=== PATIENT | female | born 1990 | race Caucasian/White ===

== ENCOUNTER → 2016-10-30 | Outpatient (REF) | payer OTHER ==
[~2016-10-30] MED LIST: ACET50TA PO; ANUS2.5C2 PR; DOCU10ELUD PO; IBUP80TA PO; MOM30SS PO; PRENTAB74 PO
== END ==
LOC: M LAB REF 16:50
PROVIDERS: ATTEND Family Medicine
DX: Z12.4 Encounter for screening for malignant neoplasm of cervix (principal)

== ENCOUNTER → 2017-07-12 | Outpatient (REF) | payer OTHER | LOC: M SFHCLERA 11:56 | PROVIDERS: ATTEND Nurse Practitioner Family | DX: J02.9 Acute pharyngitis, unspecified (principal) ==

== ENCOUNTER → 2018-02-05 | Outpatient (CLI) | payer BC, OTHER | LOC: M LRY 09:00 | DX: S49.91XA Unspecified injury of right shoulder and upper arm, initial encounter (principal); W23.1XXA Caught, crushed, jammed, or pinched between stationary objects, initial encounter; Y92.9 Unspecified place or not applicable | CPT/HCPCS: 73080 ==

== ENCOUNTER → 2018-04-20 | Outpatient (REF) | payer OTHER | LOC: M SFHCLERA 15:10 | DX: J02.9 Acute pharyngitis, unspecified (principal) ==

== ENCOUNTER → 2019-07-18 | Outpatient (REF) | payer OTHER ==
[~2019-07-18] MED LIST changes: -ACET50TA PO; -DOCU10ELUD PO; +DOCU5LIQ PO; +MAPA500T17 PO
== END ==
LOC: M SFHCPLAZ 10:56
PROVIDERS: ATTEND Specialist
DX: Z12.4 Encounter for screening for malignant neoplasm of cervix (principal)

== ENCOUNTER → 2019-09-05 | Outpatient (CLI) | payer OTHER | LOC: M PLALAB 13:56 | PROVIDERS: ATTEND Physician Assistant | DX: Z34.90 Encounter for supervision of normal pregnancy, unspecified, unspecified trimester (principal); Z3A.01 Less than 8 weeks gestation of pregnancy ==

== ENCOUNTER → 2019-11-02 | Outpatient (REF) | payer OTHER ==
[2019-11-02 13:22] LABS: HEMATOCRIT 37.1 % (36.0-47.0); HEMOGLOBIN 12.4 g/dl (12.0-15.5); MEAN CORPUSCULAR HEMOGLOBIN 29.8 pg (27.0-33.0); MEAN CORPUSCULAR HGB CONC 33.4 g/dl (32.0-36.5); MEAN CORPUSCULAR VOLUME 89.2 fl (80.0-96.0); PLATELET COUNT, AUTOMATED 200 10^3/uL (150-450); RED BLOOD COUNT 4.16 10^6/uL (4.00-5.40); WHITE BLOOD COUNT 7.3 10^3/uL (4.0-10.0)
[2019-11-02 13:41] LABS: GLUCOSE CHALLENGE TEST 1 HOUR 104 MG/DL (LESS THAN 140)
[2019-11-02 15:10] LABS: CHLAMYDIA DNA AMPLIFICATION NEGATIVE (NEGATIVE); GC DNA AMPLIFICATION NEGATIVE (NEGATIVE)
[2019-11-04 14:21] LABS: HEPATITIS B SURFACE ANTIGEN NEGATIVE (NEGATIVE); RUBELLA IgG QUALITATIVE IMMUNE (IMMUNE)
[2019-11-04 14:49] LABS: HEPATITIS C VIRUS ABY INDEX 0.3 INDEX (<0.8)
[2019-11-04 14:50] LABS: HIV 1&2 SCREEN CENTAUR NEGATIVE (NEGATIVE)
== END ==
LOC: M PLALAB 09:31
PROVIDERS: ATTEND Advanced Practice Midwife
DX: Z34.91 Encounter for supervision of normal pregnancy, unspecified, first trimester (principal)

== ENCOUNTER → 2019-11-14 | Outpatient (REF) | payer OTHER ==
[2019-11-15 14:15] LABS: ANTI PARVO VIRUS LEVEL IGG 3.7 index (0.0-0.8); ANTI PARVO VIRUS LEVEL IgM 0.2 index (0.0-0.8)
== END ==
LOC: M PLALAB 10:49
PROVIDERS: ATTEND Specialist
DX: B08.3 Erythema infectiosum [fifth disease] (principal)

== ENCOUNTER → 2019-11-30 | Outpatient (REF) | payer OTHER | LOC: M SFHCWAGY 17:39 | PROVIDERS: ATTEND Advanced Practice Midwife | DX: Z34.82 Encounter for supervision of other normal pregnancy, second trimester (principal) ==

== ENCOUNTER → 2019-12-08 | Outpatient (CLI) | payer OTHER ==
--- NOTE | 2019-12-08 18:47 | REP ---
Clinical: Anatomical evaluation. Comparison: None . Findings: Examination demonstrates a single live intrauterine in variable presentation. motion is identified by technologist. Placenta is noted posterior and grade zero without evidence for placenta previa or abruption. Amniotic fluid volume is normal. Cervix measures 3.6 cm in length and appears closed. No evidence for nuchal cord. Gestational age by current measurements 17 weeks 3 days with JADEN 05/14/2020 . FHR equals 142 beats per minute. BPD 4.0 cm 18 weeks 0 days HC 14.4 cm 17 weeks 4 days AC 11.8 cm 17 weeks 4 days FL 2.3 cm 17 weeks 0 days HL 2.3 cm 17 weeks 1 day HC/AC ratio 1.22 Estimated weight 189 grams ( 44th percentile). Anatomical assessment demonstrates normal structures including cranium, choroid plexus, cavum, cerebellum/posterior fossa, lungs, diaphragm, stomach, cord insertion/three-vessel cord, kidneys/bladder, spine, and extremities. Impression: Single live intrauterine in variable presentation demonstrating appropriate estimated weight. Limited evaluation of the facial features and heart/ventricular outflow tracts noted.
== END ==
LOC: M WHC 12:36
PROVIDERS: ATTEND Advanced Practice Midwife
DX: Z36.89 Encounter for other specified antenatal screening (principal); Z3A.17 17 weeks gestation of pregnancy

== ENCOUNTER → 2019-12-30 | Outpatient (CLI) | payer OTHER ==
--- NOTE | 2019-12-31 12:44 | REP ---
OB ULTRASOUND: Real-time sonographic evaluation of gravid uterus performed. There is a single living intrauterine gestation, estimated gestational age 20 weeks 4 days, EDC 05/14/2020. Today's measurements indicate appropriate growth. BPD 43 mm = 18 weeks 6 days, 8th percentile HC 180 mm = 20 weeks 3 days, 49th percentile AC 150 mm = 20 weeks 2 days, 44th percentile Femur length 32 mm = 20 weeks 0 days, 39th percentile HC/AC ratio 1.21 within normal range of 1.06-1.24. Estimated weight 337 grams, 36th percentile. Cervix is closed and measures 3.4 cm in length. heart rate 149 beats per minute. Visualized anatomy today includes lateral ventricles and choroid plexus, upper lip, ventricular outflow tracts, stomach, cord insertion, three-vessel cord, kidneys, and bladder, which are grossly unremarkable. Four-chamber heart is still not well visualized. position vertex. Placenta posterior and grade 1 with no previa or abruption. Amniotic fluid appears within normal limits.
== END ==
LOC: M WHC 09:27
PROVIDERS: ATTEND Advanced Practice Midwife
DX: Z34.92 Encounter for supervision of normal pregnancy, unspecified, second trimester (principal)

== ENCOUNTER → 2020-01-25 | Outpatient (REF) | payer OTHER ==
[2020-01-25 13:39] LABS: HEMATOCRIT 36.6 % (36.0-47.0); HEMOGLOBIN 12.1 g/dl (12.0-15.5); MEAN CORPUSCULAR HEMOGLOBIN 30.4 pg (27.0-33.0); MEAN CORPUSCULAR HGB CONC 33.1 g/dl (32.0-36.5); PLATELET COUNT, AUTOMATED 216 10^3/uL (150-450); RED BLOOD COUNT 3.98 10^6/uL (4.00-5.40); WHITE BLOOD COUNT 10.3 10^3/uL (4.0-10.0)
== END ==
LOC: M PLALAB 08:41
PROVIDERS: ATTEND Nurse Practitioner Women's Health
DX: Z34.82 Encounter for supervision of other normal pregnancy, second trimester (principal)

== ENCOUNTER → 2020-01-30 | Outpatient (CLI) | payer OTHER ==
--- NOTE | 2020-01-30 10:22 | REP ---
OBSTETRIC SONOGRAPHY: HISTORY: Supervision of , followup anatomy. FINDINGS: Scanning through the gravid uterus demonstrates a viable single intrauterine gestation in a breech lie. motion is observed, and heart rate is recorded at 160 beats per minute. A posterior grade 0 placenta is seen without evidence of previa or abruption. Amniotic fluid is subjectively normal. Closed cervical length is 3.5 cm. No extrauterine abnormalities observed. There has been appropriate interval growth. No anomaly is seen. Four-chamber heart images are felt to be unremarkable. BIOMETRY CHART: BPD 6.2 cm = 25 weeks 0 days Head circumference 22.8 cm = 24 weeks 6 days Abdominal circumference 20.9 cm = 25 weeks 3 days Femur length 4.7 cm = 25 weeks 3 days Humeral length 4.2 cm = 25 weeks 1 day HC/AC ratio normal 1.09, cephalic index normal 0.75, estimated weight 801 grams, 1 pound 12 ounces, 56 percentile for 25 weeks 1 day. IMPRESSION: Viable single intrauterine gestation at 24 weeks 6 days by today's composite criteria. Expected gestational age estimate based on prior sonography is 25 weeks 0 days. JADEN by prior sonography, May 14, 2020. In conjunction with prior study, anatomic survey is felt to be complete.
== END ==
LOC: M WHC 08:28
PROVIDERS: ATTEND Nurse Practitioner Women's Health
DX: Z34.82 Encounter for supervision of other normal pregnancy, second trimester (principal); Z36.2 Encounter for other antenatal screening follow-up; Z3A.24 24 weeks gestation of pregnancy

== ENCOUNTER → 2020-04-13 | Outpatient (REF) | payer OTHER, MEDICAID | LOC: M SFHCWAGY 15:01 | PROVIDERS: ATTEND Advanced Practice Midwife | DX: Z34.83 Encounter for supervision of other normal pregnancy, third trimester (principal); Z3A.00 Weeks of gestation of pregnancy not specified ==

== ENCOUNTER 2020-05-03 16:48 | Inpatient (IN) | payer OTHER ==
[~2020-05-03] VITALS: Ht 154.9 cm; Wt 77.7 kg
[2020-05-03 17:01] VITALS: BP 122/74
[2020-05-03] MEDS ORDERED: LACTATED RINGER'S 1000 ML IV STA (17:36)
[2020-05-03] MEDS ORDERED: miSOPROStol 25 MCG 1/4 TAB (S0191) As Ordered ONE (17:39)
[2020-05-03] MEDS ORDERED: BUTORPHANOL 2 MG/ML INJ (J0595) IV PRN (17:45)
[2020-05-03] MEDS ORDERED: PROMETHAZINE INJ 25 MG/ML VIAL (J2550) IV PRN (17:45)
[2020-05-03] MEDS ORDERED: miSOPROStol 25 MCG 1/4 TAB (S0191) PV ONE (18:00)
--- NOTE | 2020-05-03 18:04 | HPEPDOC ---
Obstetrical History & Physical General Date of Admission May 03, 2020 at 17:21 History of Present Illness Laya is a 29yo with SIUP at 39w0d by lmp presenting for scheduled IOL for history of prior shoulder dystocia in her first (she had GDM in that ). She has felt contractions today, not strong but becoming more regular. No LOF, no vaginal bleeding. Good movement. No v/b/CP/SOB. Chief Complaint: Contractions, term, Induction of labor Information Provided By: Patient Care Care: Good Care Dating Final EDC: May 10, 2020 Final EDC by: LMP Antepartum Course Diagnos(e)s Benign course Past Medical History Past Obstetrical History : Past Obstetrical History: Multigravida (02/22/13 iol at 39wk for GDM with , shoulder dystocia, 7lb3oz F. 04/15/15 iol at 38w6d with , 7lb3oz F) [employer] History: Human papillomavirus(HPV) Past Medical History Medical History Benign PMhx Surgical History: [place] teeth Family History Significant Family History: Cancer (grandfather has colon cancer) Social History Marital Status: Family situation: Spouse/partner home Psychosocial History: No pertinent psych hx * Smoker: non-smoker Alcohol: Denies Drugs: denies Allergies Coded Allergies: No Known Allergies (Unverified , 11/17/12) Medications Scheduled Vit 49/Iron Fum/Folic (Mini Tablet) 1 Each Tablet, 1 PO DAILY Physical Examination Physical Examination GENERAL: Alert and oriented times three. ABDOMEN: Gravid and non-tender to touch. FETUS: Is vertex (VTX) by sterile vaginal examination (SVE) EXTREMITIES: No edema BLE Laboratory Data 24H LABS Laboratory Tests 2 05/03/20 17:27: Serology Scanned Report Hepatitis B Testing Pertinent Laboratoy Data Blood Type: A+ RBC Antibody Screen: Negative HIV: Negative Hepatitis B: Negative Hepatitis C: Negative Rapid Plasma Reagin: Nonreactive Rubella: Immune Chlamydia/Gonorrhea: Negative Group B Streptococcus: Negative Glucose Tolerance Test: 119 Anatomy Ultrasound Ultrasound Date: Jan 30, 2020 Placenta Location: Posterior Normal Anatomy: Yes Placenta Previa: No Steroid Therapy Steroid Therapy: No Vaginal Examination Dilation: 1cm Effacement: other (thick) Station: -2 Cervical Consistency: Medium Cervical Position: Middle Presentation: Cephalic presentation Assessment Heart Rate (FHR): 120 Variability: Moderate Accelerations: Positive Decelerations: None Tocometer Contractions: Yes Frequency: regular, every 3-7 min. Duration: greater than 60 seconds Strength: palpated as mild Assessment/Plan Assessment Laya is a 29yo with SIUP at 39w0d by lmp presenting for scheduled IOL for history of prior shoulder dystocia in her first (she had GDM in that ). Vitals wnl, benign exam. Cat I FHRT. Cephalic by SCE, //- 2. Smith cervical bulb placed with 40cc NS well tolerated, 25mcg PV cytotec placed. Plan to continue PO cytotec q4hr until good labor pattern develops. GBS negative. Plan Admit and orient. Master Mechanic and consent. Diet: regular for dinner then clear liquids Group B Streptococcus (GBS) negative Labs and intravenous (IV) per unit protocol. Counseled on smith bulb, cytotec, Pitocin and induction of labor (IOL). Lactated Ringers (LR): Bolus 800 mL prior to epidural, then at 125 mL/hr Anticipate normal spontaneous delivery () 2mg IV stadol/12.5mg IV phenergan for pain control in latent labor MD Blake Mc Katrina D MD May 03, 2020 18:04
[2020-05-03 18:48] VITALS: BP 125/72
[2020-05-03 18:54] LABS: HEMATOCRIT 34.7 % (36.0-47.0); HEMOGLOBIN 11.3 g/dl (12.0-15.5); MEAN CORPUSCULAR HGB CONC 32.6 g/dl (32.0-36.5); PLATELET COUNT, AUTOMATED 177 10^3/uL (150-450)
[2020-05-03 19:45] VITALS: BP 122/68
[2020-05-03 21:23] VITALS: BP 115/58
[2020-05-03 21:58] VITALS: BP 117/65
[2020-05-03] MEDS ORDERED: miSOPROStol 25 MCG 1/4 TAB (S0191) PO SCH (22:00)
[2020-05-03 22:56] VITALS: BP 119/63
[2020-05-03] MEDS ORDERED: FENTANYL 2MCG/ML ROPIVACAINE 0.2% IN 0.9% NACL 100ML IVBAG As Ordered ONE (23:49)
[2020-05-04] VITALS (33 sets, daily range): BP systolic 90–127; BP diastolic 50–68
[2020-05-04] MEDS ORDERED: NALOXONE INJ 0.4MG/1ML VIAL (J2310 PER 1MG) IV PRN (00:40)
[2020-05-04] MEDS ORDERED: EPIDURAL COMMENT XX SCH (00:40)
[2020-05-04] MEDS ORDERED: EPIDURAL/PCA KEYS XX PRN (00:40)
[2020-05-04] MEDS ORDERED: ePHEDrine SULFATE 25 MG/5 ML(5MG/ML) SYRINGE IV PRN (00:40)
[2020-05-04] MEDS ORDERED: FENTANYL/ROPIVACAINE/NACL BAG 100 ML EPIDURAL SCH (00:40)
[2020-05-04] MEDS ORDERED: LACTATED RINGER'S 1000 ML IV PRN (00:40)
[2020-05-04] MEDS ORDERED: ONDANSETRON 4MG/2ML VIAL IV PRN (00:40)
[2020-05-04] MEDS ORDERED: diphenhydrAMINE 50MG/ML VIAL (J1200) IV PRN (00:40)
[2020-05-04] MEDS ORDERED: REFRIGERATOR IV KEYS XX PRN (00:40)
[2020-05-04] MEDS: LR 1,000 ML IV SCH ×2 (01:07→04:56)
--- NOTE | 2020-05-04 03:37 | IPNPDOC ---
Text Note Date of Service The patient was seen on 05/04/20. NOTE Intrapartum Note Pt comfortable now with epidural. Vitals wnl, afebrile Cat I-II FHRT with +accels, mod dai, rare subtle late decel [place]: ctx q2-4min SCE: /-2, AROM performed with clear blood tinged fluid noted, well tolerated Will continue to closely monitor Plan to recheck in 2hr or earlier as indicated Safe to proceed Mirtha Lozano MD VS,Tika, I+O VS, Tika I+O Laboratory Tests 05/03/20 18:46 Vital Signs Date Time Temp Pulse Resp B/P (MAP) Pulse Ox O2 Delivery O2 Flow Rate FiO2 05/04/20 02:57 80 16 95/50 (65) 05/03/20 23:45 97.9 I&O- Last 24 Hours up to 6 AM 05/04/20 06:00 Intake Total 1175 ml Output Total 600 ml Balance 575 ml Mirtha Lozano MD May 04, 2020 03:37
[2020-05-04] MEDS ORDERED: OXYTOCIN 30 UNITS IN 0.9% NaCl 500ML IV BAG (J2590) As Ordered ONE (06:34)
[2020-05-04] MEDS ORDERED: ACETAMINOPHEN 500 MG TAB PO PRN (07:00)
[2020-05-04] MEDS ORDERED: MEASLES,MUMPS,RUBELLA VACCINE INJ (MMR-II) (90707) SC SCH (07:00)
[2020-05-04] MEDS ORDERED: ACETAMINOPHEN TAB 650MG DOSE (2X325MG) PO PRN (07:00)
[2020-05-04] MEDS ORDERED: RHOGAM 300 MCG (1500 IU) INJ (J2790) IM SCH (07:00)
[2020-05-04] MEDS ORDERED: IBUPROFEN 600MG TAB PO PRN (07:00)
[2020-05-04] MEDS ORDERED: DOCUSATE SODIUM 100 MG CAP PO PRN (07:00)
[2020-05-04] MEDS ORDERED: DIBUCAINE 1% OINTMENT 30GM TOP PRN (07:00)
[2020-05-04] MEDS ORDERED: OXYTOCIN DRIP 30 UNITS in IV 1 EA IV SCH (07:00)
--- NOTE | 2020-05-04 07:08 | DNPDOC ---
[facility] Delivery Note Delivery Note DATE OF DELIVERY: 05/04/20 PREDELIVERY DIAGNOSIS: 39w1d IOL, elective for history of PRIOR shoulder dystocia POST DELIVERY DIAGNOSIS: Delivered. PROCEDURE: Spontaneous vaginal delivery MARKER HAND: Dr. Mirtha Lozano MD ANESTHESIA: epidural ESTIMATED BLOOD LOSS: 300 mL. FINDINGS: 6 pound 13 ounce (3080g) male , Score 9/9 DELIVERY SUMMARY: Laya is a 29yo [id number] s/p uncomplicated at 0638 on 05/04/20 after und ergoing IOL at 39w1d. She had cervical smith bulb placed and 25mcg PV cytotec, then progressed on her own. She received an epidural and I performed, AROM, clear at 7cm. When she was C/C/0, she had the urge to push. With good maternal effort and only 2 contractions worth of pushing, 's head delivered OA, restituted INDU. Left anterior shoulder delivered followed by posterior shoulder and corpus. Spontaneous cry noted, was vigorous with apgars 9/9 and placed on maternal abdomen. Nose and mouth suctioned with bulb suction. After approximtaely 2 minutes, cord clamped x2 and cut by FOB. With fundal massage and traction on the cord, placenta delivered spontaneously and intact with 3 vessel cord peripherally inserted. More uterine massage performed and fundus then firm at u-2cm with hemostasis noted. Inspection of perineum and vagina revealed a tiny superficial abrasion of the inner right labia hemostatic and not needing repair. All counts correct x2. Mom and were doing well when I left the room. MD Blake Mc Katrina D MD May 04, 2020 07:08
[2020-05-04] MEDS: PRENATAL VITAMINS CHEWABLE TABLET PO SCH (09:11)
[2020-05-05] MEDS: IBUPROFEN 800 MG TAB PO PRN ×2 (05:29→14:36)
[2020-05-05 06:00] VITALS: BP 113/55
--- NOTE | 2020-05-05 07:11 | IPNPDOC ---
Text Note Date of Service The patient was seen on 05/05/20. NOTE Inpatient Reports that "I am doing well." Denies any concerns. VSS, afebrile, normotensive. well throughout the night, denies pain/soreness with , using a shield. Reports rubra lochia small, no odor, some cramping and taking Tylenol and Ibuprofen. Fundus Firm at umbilicus, small amount of rubra lochia noted on pad. Would like to go home today if is able. VS,Fishbone, I+O VS, Fishbone, I+O Vital Signs Date Time Temp Pulse Resp B/P (MAP) Pulse Ox O2 Delivery O2 Flow Rate FiO2 05/05/20 06:00 97.6 70 18 113/55 (74) 05/04/20 18:00 98 Room Air I&O- Last 24 Hours up to 6 AM 05/05/20 06:00 Intake Total 1162.5 ml Output Total 650 ml Balance 512.5 ml Eliza White CNM May 05, 2020 07:11
[2020-05-05] MEDS: PRENATAL VITAMINS CHEWABLE TABLET PO SCH (09:59)
== END 2020-05-05 14:45 | disposition home or self-care (01) | DRG 807 ==
LOC: M LDO 16:48 → M LDI 17:21 → M OBS 05-04 14:00
PROVIDERS: ADMIT Obstetrics & Gynecology; ATTEND Obstetrics & Gynecology
PROC: 10E0XZZ Delivery of Products of Conception, External Approach (ICD-10-PCS; principal; 2020-05-04)
PROC: 10907ZC Drainage of Amniotic Fluid, Therapeutic from Products of Conception, Via Natural or Artificial Opening (ICD-10-PCS; 2020-05-04)
DX: O80 Encounter for full-term uncomplicated delivery (principal); Z37.0 Single live birth; Z3A.39 39 weeks gestation of pregnancy; Z87.59 Personal history of other complications of pregnancy, childbirth and the puerperium

== ENCOUNTER → 2021-04-15 | Outpatient (REF) | payer OTHER, MEDICAID | LOC: M LAB REF 17:48 | PROVIDERS: ATTEND Family Medicine | DX: J06.9 Acute upper respiratory infection, unspecified (principal) ==

== ENCOUNTER → 2022-12-24 | Outpatient (CLI) | payer OTHER ==
[2022-12-24 14:39] LABS: ALBUMIN 4.3 G/DL (3.2-5.2); ALKALINE PHOSPHATASE 71 U/L (46-116); ALT/SGPT 13 U/L (7.0-40); AST/SGOT 13 U/L (<34); BILIRUBIN,TOTAL 0.7 MG/DL (0.3-1.2); BLOOD UREA NITROGEN 9 MG/DL (9-23); CARBON DIOXIDE LEVEL 28 MMOL/L (20-31); CHLORIDE LEVEL 107 MMOL/L (98-107); CHOLESTEROL LEVEL 140 MG/DL (<200); CHOLESTEROL RISK RATIO 2.06 (<5); CREATININE FOR GFR 0.72 MG/DL (0.55-1.30); GLOMERULAR FILTRATION RATE > 60.0 (>60); GLUCOSE, FASTING 91 MG/DL (60-100); HDL CHOLESTEROL 67.7 MG/DL (>40); IRON (FE) 101 UG/DL (50-170); LDL CHOLESTEROL 62.7 MG/DL (<100); NON-HDL-C 72.3 MG/DL; PERCENT SATURATION 31.8 % (13.2-45.0); POTASSIUM SERUM 4.1 MMOL/L (3.5-5.1); SODIUM LEVEL 142 MMOL/L (136-145); TOTAL IRON BINDING CAPACITY 318 UG/DL (250-425); TOTAL PROTEIN 7.3 G/DL (5.7-8.2); TRIGLYCERIDES LEVEL 48 MG/DL (<150)
[2022-12-24 14:41] LABS: BASO % 0.7 % (0.0-1.0); EOS % 0.7 % (0.0-3.0); HEMATOCRIT 42.3 % (36.0-47.0); HEMOGLOBIN 14.1 g/dl (12.0-15.5); LYMPH # 1.5 10^3/uL (1.5-5.0); LYMPH % 35.5 % (24.0-44.0); MEAN CORPUSCULAR HEMOGLOBIN 30.4 pg (27.0-33.0); MEAN CORPUSCULAR HGB CONC 33.3 g/dl (32.0-36.5); MEAN CORPUSCULAR VOLUME 91.2 fl (80.0-96.0); MONO # 0.4 10^3/uL (0.0-0.8); MONO % 9.1 % (2.0-8.0); NEUTROPHILS # 2.2 10^3/uL (1.5-8.5); NEUTROPHILS % 53.8 % (36.0-66.0); PLATELET COUNT, AUTOMATED 274 10^3/uL (150-450); RED BLOOD COUNT 4.64 10^6/uL (4.00-5.40); WHITE BLOOD COUNT 4.2 10^3/uL (4.0-10.0)
[2022-12-24 14:42] LABS: THYROID STIMULATING HORMONE 2.146 uIU/ML (0.55-4.78)
[2022-12-24 14:43] LABS: FERRITIN 38.4 NG/ML (7.3-270.7); FOLATE 8.58 NG/ML (>5.4); TOTAL 25(OH) VITAMIN D 23.2 NG/ML (20.0-100.0); VITAMIN B12 LEVEL 309 PG/ML (211-911)
[2022-12-24 14:44] LABS: FREE T4 0.95 NG/DL (0.89-1.76)
[2022-12-24 15:36] LABS: HEMOGLOBIN A1c 4.6 % (4.0-6.0)
== END ==
LOC: M PLALAB 10:54
PROVIDERS: ATTEND Physician Assistant
DX: Z13.29 Encounter for screening for other suspected endocrine disorder (principal); Z13.220 Encounter for screening for lipoid disorders

== ENCOUNTER → 2023-01-21 | Outpatient (CLI) | payer OTHER | LOC: M WHC 10:29 | PROVIDERS: ATTEND Family Medicine | DX: N64.4 Mastodynia (principal) | CPT/HCPCS: 77066; G0279 ==

== ENCOUNTER → 2023-11-26 | Outpatient (CLI) | payer OTHER ==
[2023-11-26 18:24] LABS: BASO # 0.1 10^3/uL (0.0-0.2); BASO % 0.5 % (0.0-1.0); EOS # 0.1 10^3/uL (0.0-0.5); EOS % 0.7 % (0.0-3.0); HEMATOCRIT 39.7 % (36.0-47.0); HEMOGLOBIN 13.5 g/dl (12.0-15.5); LYMPH % 20.3 % (24.0-44.0); MEAN CORPUSCULAR HEMOGLOBIN 30.6 pg (27.0-33.0); MONO # 0.4 10^3/uL (0.0-0.8); MONO % 4.4 % (2.0-8.0); NEUTROPHILS # 7.4 10^3/uL (1.5-8.5); NEUTROPHILS % 73.8 % (36.0-66.0); PLATELET COUNT, AUTOMATED 242 10^3/uL (150-450); RED BLOOD COUNT 4.41 10^6/uL (4.00-5.40)
[2023-11-26 19:11] LABS: ALBUMIN 4.5 G/DL (3.2-5.2); ALKALINE PHOSPHATASE 70 U/L (46-116); ALT/SGPT 10 U/L (7.0-40); AST/SGOT 11 U/L (<34); BILIRUBIN,TOTAL 0.6 MG/DL (0.3-1.2); BLOOD UREA NITROGEN 6 MG/DL (9-23); CALCIUM LEVEL 9.2 MG/DL (8.5-10.1); CARBON DIOXIDE LEVEL 25 MMOL/L (20-31); CHLORIDE LEVEL 104 MMOL/L (98-107); FREE T4 1.02 NG/DL (0.89-1.76); GLOMERULAR FILTRATION RATE > 60.0 (>60); GLUCOSE, FASTING 85 MG/DL (60-100); POTASSIUM SERUM 3.8 MMOL/L (3.5-5.1); SODIUM LEVEL 138 MMOL/L (136-145); THYROID PEROXIDASE ANTIBODY 50 U/ML (<60.0); THYROID STIMULATING HORMONE 2.608 uIU/ML (0.55-4.78); TOTAL PROTEIN 7.5 G/DL (5.7-8.2)
[2023-11-26 19:24] LABS: HEMOGLOBIN A1c 4.5 % (4.0-6.0)
== END ==
LOC: M PLALAB 15:06
PROVIDERS: ATTEND Physician Assistant
DX: Z13.29 Encounter for screening for other suspected endocrine disorder (principal)